=== PATIENT | male | born 1970 | race Caucasian/White ===

== ENCOUNTER → 2018-07-23 | Outpatient (CLI) | payer OTHER ==
[~2018-07-23] MED LIST: ASPI-496 PO; LACT1CAP37 PO; MULT-658 PO; OMEG1CAP23 PO; TRAZ50TA66 PO; TRIA10VI INJ; trazodone PO
== END | disposition home or self-care (01) ==
LOC: STAR 15:26
PROVIDERS: ATTEND Surgery
DX: Z02.9 Encounter for administrative examinations, unspecified (principal)

== ENCOUNTER 2018-07-30 10:45 | Day surgery (SDC) | payer OTHER ==
[~2018-07-30] VITALS: Ht 182.9 cm; Wt 91.2 kg
[~2018-07-30 10:45] MED LIST changes: +BUPIVACAINE/PF-EPI 0.5% 1:200K ONE
[2018-07-30] MEDS ORDERED: LACTATED RINGERS 1,000 ML IV SCH (11:05)
[2018-07-30 11:15] VITALS: BP 140/91
[2018-07-30] MEDS ORDERED: ONDANSETRON 2MG/ML, 2ML IVPush ONE (12:30)
[2018-07-30] MEDS ORDERED: OXYcodone IR 5MG TABLET PO ONE (12:30)
[2018-07-30] MEDS ORDERED: METOCLOPRAMIDE 5 MG/ML, 2ML IVPush ONE (12:30)
[2018-07-30] MEDS ORDERED: ONDANSETRON 2MG/ML, 2ML ONE (12:33)
[2018-07-30] MEDS ORDERED: METOCLOPRAMIDE 5 MG/ML, 2ML ONE (12:33)
[2018-07-30] MEDS ORDERED: ROCURONIUM 10 MG/ML,10ML ONE (12:51)
[2018-07-30] MEDS ORDERED: PROPOFOL 10 MG/ML, 20ML ONE (12:51)
[2018-07-30] MEDS ORDERED: GLYCOPYRROLATE 0.2MG/1ML, 5ML ONE (12:51)
[2018-07-30] MEDS ORDERED: LIDOCAINE PF 2%, 5ML ONE (12:51)
[2018-07-30] MEDS ORDERED: NEOSTIGMINE 1 MG/ML, 10ML ONE (12:51)
[2018-07-30] MEDS ORDERED: DEXAMETHASONE 4 MG/ML, 1ML ONE (12:51)
[2018-07-30] MEDS ORDERED: CEFAZOLIN 1,000 MG ONE (12:51)
[2018-07-30] MEDS ORDERED: FENTANYL PF 100 MCG/2ML ONE ×2 (12:57→13:56)
[2018-07-30] MEDS ORDERED: MIDAZOLAM 1 MG/ML, 2ML ONE (12:57)
[2018-07-30] MEDS ORDERED: SUGAMMADEX 200 MG/2 ML IVPush ONE (13:24)
[2018-07-30] MEDS ORDERED: OXYcodone 5 MG/5 ML ORAL.SOL UDC ONE (13:43)
[2018-07-30] MEDS ORDERED: KETOROLAC 30 MG/1 ML ONE (13:43)
[2018-07-30] MEDS ORDERED: FENTANYL PF 100 MCG/2ML IV PRN (14:00)
[2018-07-30] MEDS ORDERED: MIDAZOLAM 1 MG/ML, 2ML IV PRN (14:00)
[2018-07-30] MEDS ORDERED: LABETALOL 5MG/ML, 20ML IV PRN (14:00)
[2018-07-30] MEDS ORDERED: OXYcodone 5 MG/5 ML ORAL.SOL UDC PO PRN (14:00)
[2018-07-30] MEDS ORDERED: ONDANSETRON 2MG/ML, 2ML IVPush PRN ×2 (14:00→16:30)
[2018-07-30] MEDS ORDERED: HYDROmorphone 1 MG/ML, 1ML IV PRN (14:00)
[2018-07-30] MEDS ORDERED: KETOROLAC 30 MG/1 ML IV PRN (14:00)
[2018-07-30] MEDS ORDERED: MEPERIDINE/PF 25MG/0.5ML IVPush PRN (14:00)
[2018-07-30] MEDS ORDERED: morphine SULFATE 10 MG/ML, 1ML IVPush PRN (16:30)
[2018-07-30] MEDS ORDERED: OXYcodone/APAP 5/325MG TABLET PO PRN (16:30)
== END 2018-07-30 17:15 | disposition home or self-care (01) ==
LOC: OUT 10:45
PROVIDERS: ATTEND Surgery
DX: K42.9 Umbilical hernia without obstruction or gangrene (principal); J45.909 Unspecified asthma, uncomplicated; Z98.890 Other specified postprocedural states; Z87.891 Personal history of nicotine dependence
CPT/HCPCS: 49585; J0690; J1100; J1885; J2250; J2270; J2405; J2704; J2710; J2765; J3010; J3490